=== PATIENT | male | born 1960 | race Caucasian/White ===

== ENCOUNTER 2017-10-23 11:56 | Outpatient (CLI) | payer BC ==
--- NOTE | 2017-10-23 12:44 | RAD ---
RIGHT KNEE THREE VIEWS: INDICATIONS: Chronic right knee pain. COMPARISON: None. FINDINGS: There is mild osteoarthrosis involving the right knee, predominantly affecting the medial femorotibia l and patellofemoral compartments. There is mild joint capsules distention. IMPRESSION: Mild to moderate osteoarthrosis, right knee. POS: [facility]
--- NOTE | 2017-10-23 12:46 | RAD ---
LEFT KNEE THREE VIEWS: INDICATIONS: Chronic left knee pain. COMPARISON: None. FINDINGS: There is moderate left knee osteoarthrosis with moderate medial femorotibial joint compartmental narr owing. There are moderate osteophytes affecting all major compartments. There is mild joint capsula r distention. There are mild vascular calcifications seen within the posterior soft tissues. IMPRESSION: Moderate osteoarthrosis of the left knee. POS: [facility]
== END 2017-10-23 11:57 | disposition home or self-care (01) ==
LOC: SCSRAD 11:56
PROVIDERS: ATTEND Family Medicine
DX: M25.561 Pain in right knee (principal); M25.562 Pain in left knee; M17.0 Bilateral primary osteoarthritis of knee

== ENCOUNTER 2017-12-28 09:34 | Outpatient (CLI) | payer BC ==
[~2017-12-28 09:34] MED LIST: Iopamidol 370 76% 100 ML VIAL ONE
--- NOTE | 2017-12-28 15:59 | CT ---
CONTRAST ENHANCED CT IAMGES OF THE ABDOMEN AND PELVIS: HISTORY: Abdominal pain. FINDINGS: Contrast enhanced CT images of the abdomen and pelvis were obtained after administration of IV and or al contrast. The lung bases are unremarkable. No evidence of free intraperitoneal air is seen. The liver and spleen are unremarkable. Some hepatic steatosis is noted. The pancreas is unremarkable. Adrenal glands and kidneys unremarkable. Atherosclerotic calcification is seen in the abdominal aorta. No evidence of periaortic lymphadenopathy is seen. A normal appendix is visualized. The small bowel is unremarkable without evidence of significant abnormality seen. The colon has a moderate amount of stool in the ascending colon. The descending colon is unremarkabl e. The urinary bladder is moderately thickened. Cystitis could not be excluded. Correlate with clinica l exam. Vacuum disk changes are present at the L5-S1 intervertebral disk space. There is also superior L1 en d plate partial collapse likely due to an old superior end plate L1 vertebral body end plate fracture . IMPRESSION: A moderate degree of urinary bladder thickening which may represent changes of cystitis. POS: [facility]
== END 2017-12-28 09:35 | disposition home or self-care (01) ==
LOC: SCSCT 09:34
PROVIDERS: ATTEND Family Medicine
DX: K57.92 Diverticulitis of intestine, part unspecified, without perforation or abscess without bleeding (principal); R10.32 Left lower quadrant pain; N32.89 Other specified disorders of bladder
CPT/HCPCS: 74178

== ENCOUNTER 2017-12-29 15:05 | Outpatient (CLI) | payer BC ==
--- NOTE | 2017-12-29 16:08 | RAD ---
TWO VIEWS CHEST: DATE: 12/29/2017. PROVIDED CLINICAL HISTORY: Chest pain. FINDINGS: Comparison 01/21/2014. The cardiac silhouette remains enlarged. The lungs appear clear. There is no pleural fluid of pneumothorax apparent. IMPRESSION: Cardiomegaly without evidence for an acute cardiopulmonary process. POS: [facility]
--- NOTE | 2017-12-29 16:08 | RAD ---
LEFT SHOULDER RADIOGRAPHS THREE VIEWS: Date: 12-29-17 Provided Clinical History: Left shoulder pain. FINDINGS: There is no evidence for fracture. The glenohumeral relationship appears normal. The subacromial spac e appears preserved. The acromioclavicular joint osteoarthrosis is noted. The visualized left lung fi eld appears clear. IMPRESSION: Acromioclavicular joint osteoarthrosis. POS: [facility]
== END 2017-12-29 15:06 | disposition home or self-care (01) ==
LOC: SCSRAD 15:05
PROVIDERS: ATTEND Family Medicine
DX: M25.512 Pain in left shoulder (principal); R07.9 Chest pain, unspecified; M19.012 Primary osteoarthritis, left shoulder; I51.7 Cardiomegaly
CPT/HCPCS: 71046

== ENCOUNTER 2018-01-29 08:53 | Outpatient (CLI) | payer BC ==
--- NOTE | 2018-01-29 10:55 | ULT ---
RIGHT UPPER QUADRANT ULTRASOUND: INDICATIONS: Upper abdominal pain. FINDINGS: There is increased echogenicity of the hepatic parenchyma without evidence of a focal hepatic lesion. No acute gallbladder pathology. There is no ascites. There is limited evaluation of the right upp er abdomen, due to persistent shadowing from bowel content. The common duct, as visualized, is chet l in caliber at 4 mm. IMPRESSION: 1. Hepatic steatosis. 2. No acute gallbladder pathology. 3. Limited visualization due to the persistence of shadowing bowel at the upper abdomen. POS: [facility]
== END 2018-01-29 08:54 | disposition home or self-care (01) ==
LOC: SCSULT 08:53
PROVIDERS: ATTEND Family Medicine
DX: R10.10 Upper abdominal pain, unspecified (principal); K76.0 Fatty (change of) liver, not elsewhere classified
CPT/HCPCS: 76705

== ENCOUNTER 2018-05-07 11:41 | Emergency (ER) | payer BC ==
[2018-05-07 12:31] LABS: #Basophils 0.1 thou/uL (0.0-0.2); #Eosinphils 0.4 thou/uL (0.0-0.7); #Lymphocytes 1.9 thou/uL (1.20-3.40); #Monocytes 0.9 thou/uL (0.11-0.59); #Neutrophils 4.6 thou/uL (1.40-6.50); %Basophils 0.9 % (0.0-1.0); %Eosinophils 4.6 % (0.0-10.0); %Lymphocytes 24.5 % (21.0-51.0); %Monocytes 11.2 % (0.0-10.0); %Neutrophils 58.8 % (42.0-75.0); Hemoglobin 15.9 g/dL (14.0-18.0); Mean Corpuscular HGB CONC 33.3 g/dL (32.0-36.0); Mean Corpuscular Hemoglobin 33.2 pg (27.0-31.0); Mean Corpuscular Volume 99.7 fL (78.0-98.0); Mean Platelet Volume 7.4 fL (7.4-10.4); Platelet Count 226 thou/uL (130-400); Red Blood Cell (RBC) Count 4.79 mill/uL (4.70-6.10); White Blood Cell (WBC) Count 7.9 thou/uL (4.8-10.8)
--- NOTE | 2018-05-07 12:48 | RAD ---
CHEST ONE VIEW: Indication: Left sided chest pain. Comparison: 12-29-17 FINDINGS: There is stable cardiomegaly. Lungs are clear. No acute osseous abnormality is evident. No pleural ef fusion or pneumothorax is noted. IMPRESSION: Stable cardiomegaly. POS: [facility]
[2018-05-07 13:07] LABS: ALT (SGPT) 27 U/L (8-55); AST (SGOT) 13 U/L (5-34); Albumin 4.2 g/dL (3.5-5.0); Alkaline Phosphatase 49 U/L (40-150); Anion Gap 14 mmol/L (10-20); BUN (Urea Nitrogen) 17 mg/dL (8.4-25.7); Bilirubin, Total 1.4 mg/dL (0.2-1.2); Calc. Creatinine Clearance 0 mL/min (70-130); Calcium 9.5 mg/dL (7.8-10.44); Carbon Dioxide 27 mmol/L (22-29); Chloride 98 mmol/L (98-107); Estimated GFR-MDRD 83; Globulin 2.8 g/dL (2.4-3.5); Glucose 199 mg/dL (70-105); Potassium 3.9 mmol/L (3.5-5.1); Sodium 135 mmol/L (136-145)
== END 2018-05-07 16:06 | disposition home or self-care (01) ==
LOC: ERS 11:41
DX: R07.89 Other chest pain (principal); E11.9 Type 2 diabetes mellitus without complications; I10 Essential (primary) hypertension; Z79.899 Other long term (current) drug therapy; Z79.84 Long term (current) use of oral hypoglycemic drugs
CPT/HCPCS: 36415; 71045; 80053; 84484; 85025; 93005; 94760

== ENCOUNTER 2018-05-27 05:34 | Outpatient (CLI) | payer BC ==
[2018-05-27 13:32] LABS: #Basophils 0.1 thou/uL (0.0-0.2); #Eosinphils 0.4 thou/uL (0.0-0.7); #Lymphocytes 1.9 thou/uL (1.20-3.40); #Monocytes 0.8 thou/uL (0.11-0.59); #Neutrophils 3.8 thou/uL (1.40-6.50); %Basophils 0.8 % (0.0-1.0); %Eosinophils 5.6 % (0.0-10.0); %Lymphocytes 27.4 % (21.0-51.0); %Monocytes 11.2 % (0.0-10.0); Hemoglobin 17.2 g/dL (14.0-18.0); Mean Corpuscular HGB CONC 33.1 g/dL (32.0-36.0); Mean Corpuscular Hemoglobin 32.4 pg (27.0-31.0); Mean Corpuscular Volume 97.9 fL (78.0-98.0); Mean Platelet Volume 7.5 fL (7.4-10.4); Platelet Count 300 thou/uL (130-400); Red Blood Cell (RBC) Count 5.31 mill/uL (4.70-6.10); White Blood Cell (WBC) Count 6.9 thou/uL (4.8-10.8)
[2018-05-27 13:33] LABS: Bilirubin Negative (Negative); Blood, Urine Negative (Negative); Clarity CLEAR (Clear); Glucose, Urine (Dipstick) 100 mg/dL (Negative); Leukocyte Negative (Negative); Nitrite Negative (Negative); Protein, Urine (Dipstick) Negative (Neg-Trace); Specific Gravity, Urine 1.007 (1.002-1.036); pH, Urine 5.5 (5.0-9.0)
[2018-05-27 13:38] LABS: Prothrombin Time 13.4 SEC (12.0-14.7)
[2018-05-27 13:39] LABS: Bacteria/HPF None Seen HPF (None Seen); Hyaline Casts/LPF 0-3 HYALINE CAST LPF (0-3 Hyaline); RBC/HPF 0-3 HPF (0-3); Squamous Epithelial None Seen HPF (0-3); WBC/HPF None Seen HPF (0-3)
[2018-05-27 13:52] LABS: Anion Gap 13 mmol/L (10-20); BUN (Urea Nitrogen) 18 mg/dL (8.4-25.7); Calc. Creatinine Clearance 0 mL/min (70-130); Calcium 9.9 mg/dL (7.8-10.44); Carbon Dioxide 27 mmol/L (22-29); Chloride 99 mmol/L (98-107); Estimated GFR-MDRD 87; Glucose 158 mg/dL (70-105); Potassium 4.1 mmol/L (3.5-5.1); Sodium 135 mmol/L (136-145)
--- NOTE | 2018-05-27 20:31 | EKG ---
Test Reason : Blood Pressure : / mmHG Vent. Rate : 067 BPM Atrial Rate : 067 BPM P-R Int : 160 ms QRS Dur : 102 ms QT Int : 404 ms P-R-T Axes : 026 078 021 degrees QTc Int : 426 ms Normal sinus rhythm Normal ECG When compared with ECG of 07-MAY-2018 11:45, No significant change was found Confirmed by DR. Dory LAGOS ([id number]) on 05/27/2018 8:30:53 PM Referred By: IERO Confirmed By:DR. Dory LAGOS
== END 2018-05-27 05:35 | disposition home or self-care (01) ==
LOC: LABBT 05:34
PROVIDERS: ATTEND Orthopaedic Surgery
DX: Z01.818 Encounter for other preprocedural examination (principal); M17.0 Bilateral primary osteoarthritis of knee
CPT/HCPCS: 80048; 81001; 85025; 85610; 87081; 93005; 93010

== ENCOUNTER 2018-05-27 12:30 | Inpatient (IN) | payer BC ==
[2018-06-07] MEDS ORDERED: Bupivacaine PF 0.5% 30 ML VIAL ONE (07:06)
[2018-06-07] MEDS ORDERED: Tranexamic Acid 1,000 MG/10 ML VIAL ONE ×2 (07:22→11:36)
[2018-06-07] MEDS ORDERED: Sodium Chloride 0.9% 100 ML ONE (07:22)
[2018-06-07] MEDS ORDERED: Clindamycin/D5W 900 mg/50 ml Premix Bag ONE (07:27)
[2018-06-07] MEDS ORDERED: Vancomycin HCl 1.5 GM in Sodium Chloride 0.9% 250 ML 300 ML IVPB SCH ×2 (08:00→09:30)
[2018-06-07] MEDS ORDERED: Fentanyl 100 MCG/2 ML VIAL ONE ×3 (08:08→11:49)
[2018-06-07] MEDS ORDERED: Midazolam HCl 2 mg/2 ml Vial ONE (08:08)
[2018-06-07] MEDS ORDERED: methylPREDNISolone Acetate 40 mg/ml Vial ONE ×3 (08:38→08:51)
[2018-06-07] MEDS ORDERED: Pentazocine HCl/Naloxone HCl 50/0.5 MG TAB PO PRN (08:57)
[2018-06-07] MEDS ORDERED: Promethazine HCl 25 MG/ML VIAL IM PRN ×3 (09:00→10:42)
[2018-06-07] MEDS ORDERED: diphenhydrAMINE 25 MG CAP PO PRN (09:00)
[2018-06-07] MEDS ORDERED: Fentanyl 100 MCG/2 ML VIAL SLOW IVP PRN (09:00)
[2018-06-07] MEDS ORDERED: Ondansetron PF 4 MG/2 ML Vial IVP PRN ×2 (09:00→09:56)
[2018-06-07] MEDS ORDERED: Acetaminophen 325 MG TAB PO PRN (09:00)
[2018-06-07] MEDS ORDERED: Tranexamic Acid 1,000 MG in Sodium Chloride 0.9% 100 ML IVPB SCH (09:30)
[2018-06-07] MEDS ORDERED: traMADol HCl 50 MG TAB PO PRN (09:56)
[2018-06-07] MEDS ORDERED: Zolpidem Tartrate 5 MG TAB PO PRN ×2 (09:56→21:00)
[2018-06-07] MEDS ORDERED: Ropivacaine HCl/PF 250 ML in Premix Bag 1 BAG NERVE BLCK SCH (09:56)
[2018-06-07] MEDS ORDERED: Fentanyl 100 MCG/2 ML VIAL IV PRN (09:57)
[2018-06-07] MEDS ORDERED: Acetaminophen/Codeine 30-300mg Tablet PO PRN (09:59)
[2018-06-07] MEDS ORDERED: Ondansetron HCl/PF 4 MG/2 ML Vial IVP PRN (10:42)
[2018-06-07] MEDS ORDERED: Promethazine HCl 25 MG/ML VIAL SLOW IVP PRN (10:42)
--- NOTE | 2018-06-07 11:30 | OP ---
DATE OF PROCEDURE: 06/07/2018 PREOPERATIVE DIAGNOSIS: Bilateral knee arthritis, left worse than right. POSTOPERATIVE DIAGNOSIS: Bilateral knee arthritis, left worse than right. PROCEDURES PERFORMED: 1. Left total knee replacement using Gennius pinless navigation. 2. Right knee corticosteroid injection. MUSHROOM PACKER: Dale Rivera PA-C. BLOOD LOSS: Minimal. COMPLICATIONS: None. ANESTHESIA: He had general anesthetic as well as preoperative block. COMPLICATIONS: No complications. IMPLANTS: To the left knee include a Gennius triathlon total knee system. The femur was a size 5 cruciate retaining femur. We used a size 4 tibial base plate. We used a 4 x 9 mm CS X3 tibial bearing and asymmetric 29 x 9 X3 patella. DISPOSITION: He did go to recovery room in stable condition. INDICATIONS: A 57-year-old male with significant bilateral knee arthritis and he wished to have the left knee replaced and right knee injected. DESCRIPTION OF PROCEDURE: After verbal consent forms were explained and signed, he was taken to the operative room and at this time was given general anesthetic. The right knee was cleaned off with alcohol and 80 mg of Depo-Medrol with local was then injected into the right knee without problem. We then turned our attention to the left leg. Once the level of anesthesia was appropriate, a well-padded tourniquet was placed on the left leg, and the leg was then prepped and draped in standard surgical fashion. The limb was exsanguinated and tourniquet taken up to 300 mmHg. Midline incision was made with a 10 blade down through the skin and subcutaneous tissue. Bovie electrocautery was used to coagulate any brisk venous bleeding. A new blade was used to make a medial parapatellar arthrotomy. Small subperiosteal release was performed medially and excess fat pad was removed. The knee was flexed up to gain access to the femur. The femur was navigated and distal femoral resection was made. Epicondylar access was used to align our sizing jig and this was pinned in place. We sized our femur to be a size 5 cruciate retaining femur. 4:1 cutting block was applied and pinned. Anterior and posterior chamfer cuts were then made. We navigated out our proximal tibia and made our proximal tibial resection. Spreaders were used to remove any posterior osteophytes off the back of the femur as well as remaining meniscal tissue. A long alignment jessica was then used to achieve correct rotation of our tibial baseplate and a size 4 tibial baseplate was chosen. This was pinned in place. We trialed the polyethylene and a 4 x 9 mm CS X3 tibial bearing polyethylene gave us full extension and good stability throughout range of motion. Two towel clips and a saw were used to cut our patella. Three lug nuts were drilled and asymmetric 29 x 9 X3 patella was trialed which sat nicely in the trochlear groove. We then drilled our femur and punched our tibia. All components were removed. The knee was thoroughly irrigated and dried. Cement was mixed into the cement gun on the back table. Components were then placed. The knee was held out in full extension until the cement had dried. All excess bone cement was removed. Multiple #2 Vicryl stitches as well as a Quill were used to close our extensor mechanism. 0 Quill followed by a running Monoderm was then used to close the skin. Surgicel glue was then used on the skin. Once this had dried, soft tissue dressing was applied to the limb, tourniquet was let down, and the toes pinked up nicely. The patient was then awakened and taken to the recovery room in stable condition. All counts were correct at the end of the case. The patient did receive preoperative IV antibiotics. The patient was injected with Exparel for postoperative pain relief. Job ID: [id number]
[2018-06-07] MEDS: traMADol HCl 50 MG TAB PO PRN (13:23)
[2018-06-07] MEDS ORDERED: Ropivacaine 0.5% HCl/PF (150 MG/30 ML VIAL) ONE (14:03)
[2018-06-07] MEDS ORDERED: Ropivacaine 0.2% HCl/PF (40 MG/20 ML VIAL) ONE (14:03)
[2018-06-07] MEDS ORDERED: PROPOFOL 200 MG/20 ML VIAL ONE (14:15)
[2018-06-07] MEDS ORDERED: Ketorolac Tromethamine 30 MG/ML VIAL ONE (14:15)
[2018-06-07] MEDS ORDERED: Ondansetron PF 4 MG/2 ML Vial ONE (14:15)
[2018-06-07] MEDS: Multivitamin W/ Minerals 1 TAB PO SCH (16:20)
[2018-06-07] MEDS: Ferrous Gluconate 324 MG TAB PO SCH ×2 (16:20→20:59)
[2018-06-07] MEDS: Aspirin 81 mg Enteric Coated Tablet PO SCH ×2 (16:20→20:59)
[2018-06-07] MEDS: Glimepiride 4 MG TAB PO SCH ×2 (16:20→20:59)
[2018-06-07] MEDS: Clindamycin/D5W 900 MG in Premix Bag 1 BAG IVPB SCH ×2 (16:20→16:36)
[2018-06-07] MEDS: Senokot S 8.6-50 MG TAB PO SCH ×2 (16:21→20:58)
[2018-06-07] MEDS: Ketorolac Tromethamine 30 MG/ML VIAL IVP SCH ×4 (16:21→21:00)
[2018-06-07] MEDS: Rosuvastatin 20 MG TAB PO SCH (16:21)
[2018-06-07] MEDS: Pioglitazone HCl 45 MG TAB PO SCH (16:21)
[2018-06-07] MEDS: Sodium Chloride 0.9% 1,000 ML IV SCH ×2 (16:22→20:00)
[2018-06-07] MEDS: Acetaminophen/Codeine 30-300mg Tablet PO PRN (16:43)
[2018-06-07] MEDS ORDERED: Clindamycin/D5W 900 MG in Premix Bag 1 BAG IVPB SCH ×2 (16:45→22:00)
[2018-06-07] MEDS ORDERED: Dextrose 5% in Water 1,000 ML IV PRN (17:35)
[2018-06-07] MEDS ORDERED: Dextrose 50% Abboject 50 ML SYRINGE IVP PRN (17:35)
[2018-06-07] MEDS: Insulin Regular 300 UNITS/3 ML VIAL SC PRN ×2 (18:17→21:06)
[2018-06-08] MEDS: Ketorolac Tromethamine 30 MG/ML VIAL IVP SCH ×6 (00:38→23:42)
[2018-06-08 04:41] LABS: Hemoglobin 15.3 g/dL (14.0-18.0); Mean Corpuscular HGB CONC 34.6 g/dL (32.0-36.0); Mean Corpuscular Volume 98.3 fL (78.0-98.0); Mean Platelet Volume 7.6 fL (7.4-10.4); Platelet Count 202 thou/uL (130-400); RBC Distribution Width 11.6 % (11.5-14.5); White Blood Cell (WBC) Count 14.7 thou/uL (4.8-10.8)
[2018-06-08] MEDS: Sodium Chloride 0.9% 1,000 ML IV SCH ×2 (04:59→12:19)
[2018-06-08] MEDS: Insulin Regular 300 UNITS/3 ML VIAL SC PRN ×3 (05:52→21:05)
--- NOTE | 2018-06-08 07:51 | CON ---
DATE OF CONSULTATION: 06/08/2018 HISTORY OF PRESENT ILLNESS: The patient is a 57-year-old male with known history of atherosclerotic coronary artery disease, type 2 diabetes mellitus, hypertension, and status post left total knee replacement procedure. I have been consulted for medical management. The patient is noted to have some elevated blood sugars. He reports he has been taking his home medications faithfully and notes that prior to his hospitalization, his blood sugars run about 140 fasting. As noted, he has history of arthrosclerotic coronary artery disease, status post multiple stents. He reports no chest pain or shortness of breath at this time. Otherwise, no other medical complaints are noted. ALLERGIES: ALLERGIC TO HYDROCODONE AND PENICILLIN. HOME MEDICATIONS: 1. Aspirin 325 daily. 2. Glimepiride one tablet p.o. b.i.d. 3. Pioglitazone 45 mg daily. 4. Trulicity one shot weekly. 5. Rosuvastatin 20 mg daily. 6. Metoprolol 25 mg q.a.m. PAST MEDICAL HISTORY: Positive for hypertension, hyperlipidemia, and type 2 diabetes mellitus. PAST SURGICAL HISTORY: Positive as above. PHYSICAL EXAMINATION: VITAL SIGNS: His temperature is 98.3, blood pressure 148/71, O2 sats 95% on room air, pulse 74, and respirations 18. GENERAL: He is alert, active, in no distress. NECK: Supple. Full range of motion. No masses. No bruits. LUNGS: Clear. HEART: Reveals a regular rate and rhythm. No murmurs, gallops, or rubs. LABORATORY DATA: Postoperative hemoglobin is 15.3, hematocrit 44.3. IMPRESSION: This is a 57-year-old male, 1. Status post left total knee replacement and also injects into the right knee. 2. Type 2 diabetes mellitus. 3. History of arthrosclerotic coronary artery disease. PLAN: We will start him on sliding-scale insulin. We will make sure his home medicines are restarted. We will be following the sugars and controlling all other medical aspects of his hospitalization. Job ID: [id number]
[2018-06-08] MEDS: traMADol HCl 50 MG TAB PO PRN ×3 (08:21→21:03)
[2018-06-08] MEDS: Senokot S 8.6-50 MG TAB PO SCH ×2 (08:22→20:37)
[2018-06-08] MEDS: Rosuvastatin 20 MG TAB PO SCH (08:22)
[2018-06-08] MEDS: Glimepiride 4 MG TAB PO SCH ×2 (08:23→20:37)
[2018-06-08] MEDS: Aspirin 81 mg Enteric Coated Tablet PO SCH ×2 (08:23→20:36)
[2018-06-08] MEDS: Pioglitazone HCl 45 MG TAB PO SCH (08:23)
[2018-06-08] MEDS: Multivitamin W/ Minerals 1 TAB PO SCH (08:23)
[2018-06-08] MEDS: Ferrous Gluconate 324 MG TAB PO SCH ×2 (08:27→20:36)
[2018-06-08] MEDS: Acetaminophen/Codeine 30-300mg Tablet PO PRN (10:36)
[2018-06-08 11:21] VITALS: BMI 38.0
--- NOTE | 2018-06-08 12:23 | PRG ---
DATE OF SERVICE: 06/08/2018 SUBJECTIVE: Jose is a 57-year-old white male, postop day 1 from left total knee arthroplasty. He has very little in way of complaints. OBJECTIVE: VITAL SIGNS: Stable. He is afebrile. GENERAL: He is alert and oriented to person, place, time, and situation. NEUROLOGIC: Grossly nonfocal. EXTREMITIES: Visual inspection of left knee demonstrates no strike through. LABORATORY DATA: Hemoglobin and hematocrit are 15 and 44. IMPRESSION: A 57-year-old male, postop day 1 left total knee arthroplasty, doing very well. PLAN: Probable discharge tomorrow. Continue current care. Job ID: [id number]
[2018-06-08] MEDS ORDERED: Hydrochlorothiazide 25 MG TAB PO SCH (13:00)
[2018-06-08] MEDS ORDERED: Amlodipine 10 MG TAB PO SCH (13:00)
[2018-06-08] MEDS ORDERED: Valsartan 80 MG TAB PO SCH (14:00)
[2018-06-09] MEDS: Sodium Chloride 0.9% 1,000 ML IV SCH ×2 (02:00→13:51)
[2018-06-09] MEDS: Ketorolac Tromethamine 30 MG/ML VIAL IVP SCH (05:35)
[2018-06-09 06:04] LABS: Hemoglobin 15.3 g/dL (14.0-18.0); Mean Corpuscular HGB CONC 33.1 g/dL (32.0-36.0); Mean Corpuscular Hemoglobin 33.2 pg (27.0-31.0); Mean Platelet Volume 7.7 fL (7.4-10.4); Platelet Count 221 thou/uL (130-400); RBC Distribution Width 11.9 % (11.5-14.5); Red Blood Cell (RBC) Count 4.61 mill/uL (4.70-6.10); White Blood Cell (WBC) Count 15.7 thou/uL (4.8-10.8)
[2018-06-09] MEDS ORDERED: HYDROcodone/Acetaminophen 10/325 mg Tablet PO PRN ×3 (07:30→09:09)
--- NOTE | 2018-06-09 07:41 | PRG ---
DATE OF SERVICE: 06/09/2018 SUBJECTIVE: Mr. Fox is doing well. He has no medical complaints. OBJECTIVE: VITAL SIGNS: Temperature 98.4, BP 149/82. LUNGS: Clear. HEART: Reveals no murmur. LABORATORY DATA: His blood sugars are adequately controlled. IMPRESSION: 1. Status post left total knee replacement. 2. History of atherosclerotic coronary artery disease. 3. Type 2 diabetes mellitus. PLAN: From my standpoint, medically he is able to be discharged home. He will continue his home medications. He will follow up with me in approximately 6-8 weeks. Job ID: [id number]
[2018-06-09] MEDS ORDERED: Amlodipine 10 MG TAB PO SCH (09:00)
[2018-06-09] MEDS ORDERED: Hydrochlorothiazide 25 MG TAB PO SCH (09:00)
[2018-06-09] MEDS ORDERED: Valsartan 80 MG TAB PO SCH (09:00)
[2018-06-09] MEDS: HYDROcodone/Acetaminophen 10/325 mg Tablet PO PRN ×2 (09:28→13:42)
[2018-06-09] MEDS: Aspirin 81 mg Enteric Coated Tablet PO SCH (09:32)
[2018-06-09] MEDS: Multivitamin W/ Minerals 1 TAB PO SCH (09:32)
[2018-06-09] MEDS: Ferrous Gluconate 324 MG TAB PO SCH (09:32)
[2018-06-09] MEDS: Senokot S 8.6-50 MG TAB PO SCH (09:32)
[2018-06-09] MEDS: Pioglitazone HCl 45 MG TAB PO SCH (09:33)
[2018-06-09] MEDS: Glimepiride 4 MG TAB PO SCH (09:33)
[2018-06-09] MEDS: Rosuvastatin 20 MG TAB PO SCH (09:41)
[2018-06-09 12:45] VITALS: TEMP 98.1
[2018-06-09 14:48] VITALS: BP 152/76
== END 2018-06-09 14:51 | disposition home or self-care (01) | DRG 470 ==
LOC: SURG A 06-07 05:51 → SJJU 06-07 12:51
PROVIDERS: ADMIT Orthopaedic Surgery; ATTEND Orthopaedic Surgery
PROC: 0SRD0J9 Replacement of Left Knee Joint with Synthetic Substitute, Cemented, Open Approach (ICD-10-PCS; principal; 2018-06-07)
PROC: 3E0U33Z Introduction of Anti-inflammatory into Joints, Percutaneous Approach (ICD-10-PCS; 2018-06-07)
DX: M17.0 Bilateral primary osteoarthritis of knee (principal); I25.10 Atherosclerotic heart disease of native coronary artery without angina pectoris; E11.9 Type 2 diabetes mellitus without complications; I10 Essential (primary) hypertension; E78.5 Hyperlipidemia, unspecified; Z88.5 Allergy status to narcotic agent; Z88.0 Allergy status to penicillin
CPT/HCPCS: 36415; 36416; 85027; 86850; 86900; 86901; C1713; C1776; J1030; J1815; J1885; J2250; J2405; J2704; J2795; J3010; J3370; J3490; J7050; S0020

== ENCOUNTER 2019-08-23 06:40 | Outpatient (CLI) | payer BC, OTHER ==
[2019-08-23 14:14] LABS: #Eosinphils 0.3 thou/uL (0.0-0.7); #Monocytes 0.9 thou/uL (0.11-0.59); %Basophils 0.7 % (0.0-1.0); %Eosinophils 4.7 % (0.0-10.0); %Lymphocytes 27.6 % (21.0-51.0); %Monocytes 12.6 % (0.0-10.0); %Neutrophils 54.4 % (42.0-75.0); Hemoglobin 16.3 g/dL (14.0-18.0); Mean Corpuscular HGB CONC 33.5 g/dL (32.0-36.0); Mean Corpuscular Hemoglobin 33.4 pg (27.0-31.0); Mean Corpuscular Volume 99.7 fL (78.0-98.0); Mean Platelet Volume 7.7 fL (7.4-10.4); Platelet Count 221 thou/uL (130-400); RBC Distribution Width 12.4 % (11.5-14.5); Red Blood Cell (RBC) Count 4.88 mill/uL (4.70-6.10); White Blood Cell (WBC) Count 7.3 thou/uL (4.8-10.8)
[2019-08-23 14:30] LABS: ALT (SGPT) 31 U/L (8-55); AST (SGOT) 16 U/L (5-34); Albumin 4.3 g/dL (3.5-5.0); Alkaline Phosphatase 54 U/L (40-110); Anion Gap 14 mmol/L (10-20); BUN (Urea Nitrogen) 20 mg/dL (8.4-25.7); Calc. Creatinine Clearance 0 mL/min (70-130); Calcium 9.4 mg/dL (7.8-10.44); Carbon Dioxide 28 mmol/L (22-29); Chloride 99 mmol/L (98-107); Estimated GFR-MDRD 81; Globulin 3.3 g/dL (2.4-3.5); Glucose 150 mg/dL (70-105); Potassium 5.1 mmol/L (3.5-5.1); Protein, Total 7.6 g/dL (6.0-8.3); Sodium 136 mmol/L (136-145)
== END 2019-08-23 06:41 | disposition home or self-care (01) ==
LOC: LABBT 06:40
PROVIDERS: ATTEND Internal Medicine Cardiovascular Disease
DX: Z01.812 Encounter for preprocedural laboratory examination (principal); Z11.59 Encounter for screening for other viral diseases
CPT/HCPCS: 80053; 85025; 87635; U0003

== ENCOUNTER 2019-08-25 10:10 | Day surgery (SDC) | payer BC ==
[2019-08-23 09:43] VITALS: BMI 38.4
[~2019-08-25 10:10] MED LIST changes: +Iopamidol 370 76% 50 ML VIAL FS ONE
[2019-08-25] MEDS ORDERED: Heparin 10,000 UNITS/1 ML VIAL ONE ×2 (11:02→12:40)
[2019-08-25] MEDS ORDERED: Verapamil 5 MG/2 ML VIAL ONE (11:02)
[2019-08-25] MEDS ORDERED: Nitroglycerin 100MG/250ML BOT 250 ML ONE (11:02)
[2019-08-25] MEDS ORDERED: Adenosine 6 MG/2 ML VIAL ONE (11:49)
[2019-08-25] MEDS ORDERED: Fentanyl 100 MCG/2 ML VIAL ONE (12:05)
[2019-08-25] MEDS ORDERED: Midazolam HCl 2 mg/2 ml Vial ONE (12:05)
[2019-08-25] MEDS ORDERED: Clopidogrel Bisulfate 300 MG TAB ONE (12:27)
[2019-08-25] MEDS ORDERED: hydrALAZINE 20 MG/ML VIAL ONE (12:40)
[2019-08-25] MEDS ORDERED: Aspirin Chewable 81 MG TAB ONE ×2 (12:51→12:52)
[2019-08-25] MEDS ORDERED: cloNIDine 0.1 MG TAB ONE (14:10)
== END 2019-08-25 16:43 | disposition home or self-care (01) ==
LOC: CCL 10:10
PROVIDERS: ATTEND Internal Medicine Cardiovascular Disease
PROC: 4A023N7 Measurement of Cardiac Sampling and Pressure, Left Heart, Percutaneous Approach (ICD-10-PCS; principal; 2019-08-25)
PROC: B2011ZZ Plain Radiography of Multiple Coronary Arteries using Low Osmolar Contrast (ICD-10-PCS; principal; 2019-08-25)
DX: R07.9 Chest pain, unspecified (principal); I25.118 Atherosclerotic heart disease of native coronary artery with other forms of angina pectoris; I48.92 Unspecified atrial flutter; I51.7 Cardiomegaly; I10 Essential (primary) hypertension; E11.9 Type 2 diabetes mellitus without complications; E78.5 Hyperlipidemia, unspecified; Z79.82 Long term (current) use of aspirin; Z79.84 Long term (current) use of oral hypoglycemic drugs; Z79.899 Other long term (current) drug therapy; Z88.0 Allergy status to penicillin; Z88.5 Allergy status to narcotic agent; Z95.5 Presence of coronary angioplasty implant and graft
CPT/HCPCS: 85347; 92928; 93005; 93454; 99152; 99153; C1874; C9600; J0153; J0360; J1644; J2250; J3010; Q9967